=== PATIENT | female | born 1965 | race Caucasian/White ===

== ENCOUNTER → 2019-10-28 | Outpatient (CLI) | payer BC ==
--- NOTE | 2019-10-28 18:07 | KCIC ---
Bilateral digital screening mammograms: Reason for examination: Routine screening. New baseline. Interpretation was made with the benefit of CAD. The skin and nipples show no abnormalities. No abnormal axillary lymph nodes are seen. The breast parenchyma is extremely dense. (Breast density: Category D.) There appears to be a nodular density posterior superiorly in the right breast on oblique view. Further evaluation with ultrasound is recommended. There are no other dominant masses, suspicious calcifications or architectural distortion. Impression: Small nodular density seen superiorly in the right oblique view. Recommend further evaluation with ultrasound. Your patient's mammogram demonstrates that she has dense breast tissue (breast density category C or D), which could hide abnormalities, and if she has other risk factors for breast cancer that have been identified, she might benefit from supplemental screening tests that may be suggested by you as her ordering physician. Dense breast tissue, in and of itself, is a relatively common condition. Therefore, this information is not provided to cause undue concern, but rather to raise your awareness and to promote discussion with your patient regarding the presence of other risk factors, in addition to dense breast tissue. Your patient's mammography results will be sent to her. BI-RAD Category 0: Incomplete. Needs additional imaging evaluation. "Our facility is accredited by the [employer]ammography [employer]." This patient's information has been entered into a reminder system for the patient to be notified with the results of her examination and a target date for the next mammogram. Electronically signed by: Serene Lee MD (10/28/2019 6:05 PM) [id number]
== END | disposition home or self-care (01) ==
LOC: KCIC MAMMO 10:11
PROVIDERS: ATTEND Family Medicine
DX: Z12.31 Encounter for screening mammogram for malignant neoplasm of breast (principal); N64.89 Other specified disorders of breast
CPT/HCPCS: 77067

== ENCOUNTER → 2019-11-10 | Outpatient (CLI) | payer BC ==
--- NOTE | 2019-11-10 11:10 | KCIC ---
Right breast ultrasound: Reason for examination: Parenchymal density on screening mammogram. Comparison is made to mammographic exam dated 10/28/2019. Ultrasound examination of the superior right breast and axilla was performed. At the 9:00 position 4 cm from the nipple, there is a 5 mm hypoechoic circumscribed lesion in parallel orientation which could represent a small fibroadenoma or intramammary lymph node. No other cystic or solid nodules are seen. No abnormal appearing lymph nodes are seen in the axilla. IMPRESSION: 5 mm nodule at the 9:00 position. No other focal abnormality seen in the right breast. Recommend 6 month follow-up with right breast mammograms and ultrasound. BI-RADS Category 3: Probably Benign. "Our facility is accredited by the [employer]ammography [employer]." This patient's information has been entered into a reminder system for the patient to be notified with the results of her examination and a target date for the next mammogram. Electronically signed by: Serene Lee MD (11/10/2019 11:07 AM) [id number]
== END | disposition home or self-care (01) ==
LOC: KCIC US 07:56
PROVIDERS: ATTEND Family Medicine
DX: N63.12 Unspecified lump in the right breast, upper inner quadrant (principal); R92.2 Inconclusive mammogram
CPT/HCPCS: 76641

== ENCOUNTER → 2021-05-28 | Outpatient (CLI) | payer BC ==
--- NOTE | 2021-05-28 11:24 | KCIC ---
EXAM: XR RIBS MIN 3 VIEWS RT W/PA CHEST 05/28/2021 10:25 AM CLINICAL INDICATION: Right rib pain. Slipped and injured right posterior lower ribs 2 days ago. COMPARISON: None TECHNIQUE: PA view of the chest and AP and oblique views of the right rib FINDINGS: There is an acute nondisplaced fracture of the right posterior lateral eighth rib. Additio nal right posterolateral eighth rib fracture, possibly old. The heart is normal in size. Lungs are we ll expanded. No pleural effusion or pneumothorax. Mild lumbar scoliosis. IMPRESSION: 1. Acute nondisplaced right posterolateral eighth rib fracture. 2. Additional right posterolateral sixth rib fracture, possibly old. 3. No pleural effusion or pneumothorax. Electronically signed by: Pily Landeros MD (05/28/2021 11:21 AM) [id number]
== END ==
LOC: KCIC 10:16
PROVIDERS: ATTEND Family Medicine
DX: S22.31XA Fracture of one rib, right side, initial encounter for closed fracture (principal); R07.81 Pleurodynia; X58.XXXA Exposure to other specified factors, initial encounter; Y93.89 Activity, other specified; Y92.89 Other specified places as the place of occurrence of the external cause; Y99.8 Other external cause status; M41.86 Other forms of scoliosis, lumbar region
CPT/HCPCS: 71101

== ENCOUNTER → 2021-06-05 | Outpatient (CLI) | payer BC ==
--- NOTE | 2021-06-05 17:22 | KCIC ---
EXAM: XR RIBS MIN 3 VIEWS RT W/PA CHEST 06/05/2021 1:57 PM CLINICAL INDICATION: Right posterior and anterior rib pain. 2 falls in the last 1.5 weeks. COMPARISON: Right ribs radiograph 05/28/2021 TECHNIQUE: PA view of the chest and AP and oblique views of the right ribs FINDINGS: An acute minimally displaced right lateral eighth rib fracture is unchanged. There is a ne wly seen acute nondisplaced right ninth lateral rib fracture. Unchanged old right posterior sixth rib fracture with callus formation. The heart is normal in size. Lungs are well-expanded and clear. No c onsolidation, pleural effusion, or pneumothorax. IMPRESSION: 1. Unchanged acute right lateral eighth lateral rib fracture. 2. Newly seen acute right ninth rib fractures. 3. Old right sixth rib fracture. 4. No pleural effusion or pneumothorax. Electronically signed by: Pily Landeros MD (06/05/2021 5:20 PM) [id number]
== END ==
LOC: KCIC 13:52
PROVIDERS: ATTEND Family Medicine
DX: S22.31XA Fracture of one rib, right side, initial encounter for closed fracture (principal); S22.41XD Multiple fractures of ribs, right side, subsequent encounter for fracture with routine healing; X58.XXXD Exposure to other specified factors, subsequent encounter
CPT/HCPCS: 71101

== ENCOUNTER → 2021-06-27 | Outpatient (CLI) | payer BC ==
--- NOTE | 2021-06-27 17:35 | KCIC ---
EXAM: XR RIBS MIN 3 VIEWS RT W/PA CHEST 06/27/2021 1:45 PM CLINICAL INDICATION: Right rib pain, history of rib fractures. COMPARISON: Right rib radiograph 06/05/2021 TECHNIQUE: PA view of the chest. AP and oblique views of the right ribs. FINDINGS: There are healing right lateral eighth and ninth rib fractures with increased callus forma tion, unchanged in alignment. Unchanged old right posterior lateral sixth rib fracture. No new fractu res. The heart is normal. Lungs are well-expanded and clear. No pleural effusion or pneumothorax. IMPRESSION: Healing right eighth and ninth rib fractures. Electronically signed by: Pily Landeros MD (06/27/2021 5:32 PM) [id number]
== END ==
LOC: KCIC 13:39
PROVIDERS: ATTEND Family Medicine
DX: S22.41XD Multiple fractures of ribs, right side, subsequent encounter for fracture with routine healing (principal); L84 Corns and callosities; X58.XXXD Exposure to other specified factors, subsequent encounter
CPT/HCPCS: 71101